=== PATIENT | female | born 1975 | race Caucasian/White ===

== ENCOUNTER 2017-02-02 12:06 | Emergency (ER) | payer MEDICARE, MEDICAID ==
[~2017-02-02] VITALS: Ht 157.5 cm; Wt 118.0 kg
[~2017-02-02 12:06] MED LIST: ALBU8.5H8; ALPR1TAB PO; BUDE10.2; CARV3.1289 PO; DESI50TA PO; ENAL5TAB PO; GABA-534 PO; HYDR-3964 PO; HYDR-569 PO; LAMO100T89 PO; LURA80TA3 PO; METF10002 PO; OMEP-50 PO; PRAZ2CAP2 PO; SIMV80TA5 PO; TRAM50TA2 PO
[2017-02-02] MEDS ORDERED: HYDROcodone/acetaminophen 10/325mg tab PO ONE ×2 (13:15→13:21)
[2017-02-02 13:37] VITALS: BP 128/64
== END 2017-02-02 13:40 | disposition home or self-care (01) ==
LOC: ER 12:07
DX: S01.01XA Laceration without foreign body of scalp, initial encounter (principal); E78.00 Pure hypercholesterolemia, unspecified; K21.9 Gastro-esophageal reflux disease without esophagitis; E11.9 Type 2 diabetes mellitus without complications; Z86.718 Personal history of other venous thrombosis and embolism; Z90.49 Acquired absence of other specified parts of digestive tract; Z79.84 Long term (current) use of oral hypoglycemic drugs; Z88.0 Allergy status to penicillin; Z88.8 Allergy status to other drugs, medicaments and biological substances; W22.8XXA Striking against or struck by other objects, initial encounter; Y93.89 Activity, other specified; Y92.89 Other specified places as the place of occurrence of the external cause; Y99.8 Other external cause status
CPT/HCPCS: 12004; 70450; 99284; A6449

== ENCOUNTER 2017-05-19 10:23 | Emergency (ER) | payer MEDICARE, MEDICAID ==
[~2017-05-19] VITALS: Ht 162.6 cm; Wt 126.0 kg
[2017-05-19] MEDS ORDERED: ONDA4TAB9 SL (14:24)
[2017-05-19 14:25] VITALS: BP 144/79
== END 2017-05-19 14:55 | disposition home or self-care (01) ==
LOC: ER 10:23
DX: R10.84 Generalized abdominal pain (principal); R11.0 Nausea; R19.7 Diarrhea, unspecified; E78.00 Pure hypercholesterolemia, unspecified; I10 Essential (primary) hypertension; K21.9 Gastro-esophageal reflux disease without esophagitis; E11.9 Type 2 diabetes mellitus without complications; Z86.718 Personal history of other venous thrombosis and embolism; Z90.49 Acquired absence of other specified parts of digestive tract; Z98.51 Tubal ligation status; Z98.890 Other specified postprocedural states; Z88.0 Allergy status to penicillin; Z88.8 Allergy status to other drugs, medicaments and biological substances; Z79.899 Other long term (current) drug therapy
CPT/HCPCS: 99283

== ENCOUNTER 2017-12-12 10:01 | Emergency (ER) | payer MEDICARE, MEDICAID ==
[~2017-12-12] VITALS: Ht 162.6 cm; Wt 130.2 kg
[~2017-12-12 10:01] MED LIST changes: +HYDR-4383 PO; -HYDR-569 PO; +METF-438 PO; -METF10002 PO; -SIMV80TA5 PO; +SIMV80TA7 PO
[2017-12-12 10:39] LABS: EOSINOPHILS # (AUTO) 0.2 X10'3 (0-0.9); LYMPHOCYTES # (AUTO) 1.4 X10'3 (1.1-4.8); MONOCYTES # (AUTO) 0.3 X10'3 (0-0.9)
[2017-12-12 10:41] LABS: BASOPHILS % (AUTO) 0.3 % (0-1); EOSINOPHILS % (AUTO) 3.2 % (0-6); HEMATOCRIT 31.2 % (35.0-45.0); HEMOGLOBIN 10.5 g/dl (12.0-16.0); LYMPHOCYTES % (AUTO) 21.8 % (21-51); MEAN CORPUSCULAR HEMOGLOBIN 30.8 PG (27.0-31.0); MEAN CORPUSCULAR HGB CONC 33.6 % (33.0-36.5); MEAN CORPUSCULAR VOLUME 91.8 FL (78-98); MEAN PLATELET VOLUME 6.7 FL (7.4-10.4); MONOCYTES % (AUTO) 4.1 % (2-12); NEUTROPHILS # (AUTO) 4.5 X10'3 (1.8-7.7); NEUTROPHILS % (AUTO) 70.6 % (42-75); PLATELET COUNT 304 X10'3 (140-440); RED CELL DISTRIBUTION WIDTH 15.4 % (11.5-14.5); WHITE BLOOD COUNT 6.4 X10'3 (4.5-11.0)
[2017-12-12 10:59] LABS: ALANINE AMINOTRANSFERASE 36 U/L (12-78); ALBUMIN 3.3 G/DL (3.4-5.0); ALKALINE PHOSPHATASE 101 IU/L (46-116); ANION GAP 10 (8-16); ASPARTATE AMINO TRANSFERASE 21 U/L (10-37); BILIRUBIN,TOTAL 0.2 MG/DL (0.1-1.0); BLOOD UREA NITROGEN 6 MG/DL (7-18); BUN/CREATININE RATIO 7.8 (6.6-38.0); CALCIUM 9.4 MG/DL (8.5-10.1); CHLORIDE 102 MMOL/L (99-107); CREATININE 0.77 MG/DL (0.40-0.90); GLUCOSE 154 MG/DL (70-104); POTASSIUM 3.7 MMOL/L (3.5-5.1); SODIUM 139 MMOL/L (135-145); TOTAL CARBON DIOXIDE 26.6 MMOL/L (24-32); TOTAL PROTEIN 6.6 G/DL (6.4-8.2); eGFR 83 ML/MIN
[2017-12-12 11:43] LABS: PARTIAL THROMBOPLASTIN TIME 40 SECONDS (22-32); PROTHROMBIN TIME 20.4 SECONDS (9.0-12.0)
[2017-12-12 12:11] LABS: D-DIMER 0.21 MG/L FEU (0-0.50)
[2017-12-12 14:14] VITALS: BP 136/82
== END 2017-12-12 14:16 | disposition home or self-care (01) ==
LOC: ER 10:01
DX: R07.89 Other chest pain (principal); E66.9 Obesity, unspecified; E78.00 Pure hypercholesterolemia, unspecified; I10 Essential (primary) hypertension; K21.9 Gastro-esophageal reflux disease without esophagitis; E11.9 Type 2 diabetes mellitus without complications; Z86.718 Personal history of other venous thrombosis and embolism; Z79.01 Long term (current) use of anticoagulants; Z90.49 Acquired absence of other specified parts of digestive tract; Z98.890 Other specified postprocedural states; Z98.51 Tubal ligation status; Z88.0 Allergy status to penicillin; Z88.8 Allergy status to other drugs, medicaments and biological substances; Z79.899 Other long term (current) drug therapy
CPT/HCPCS: 36415; 71045; 80053; 83880; 84484; 85025; 85379; 85610; 85730; 93005; 99285

== ENCOUNTER 2018-05-19 08:39 | Emergency (ER) | payer MEDICARE, MEDICAID ==
[~2018-05-19] VITALS: Ht 152.4 cm; Wt 123.2 kg
[~2018-05-19 08:39] MED LIST changes: -SIMV80TA7 PO; +SIMV80TA89 PO
[2018-05-19 08:49] VITALS: BP 125/61
== END 2018-05-19 09:30 | disposition home or self-care (01) ==
LOC: ER 08:40
DX: S60.031A Contusion of right middle finger without damage to nail, initial encounter (principal); I10 Essential (primary) hypertension; E78.00 Pure hypercholesterolemia, unspecified; K21.9 Gastro-esophageal reflux disease without esophagitis; E11.9 Type 2 diabetes mellitus without complications; Z86.718 Personal history of other venous thrombosis and embolism; Z90.49 Acquired absence of other specified parts of digestive tract; Z98.51 Tubal ligation status; Z88.0 Allergy status to penicillin; Z88.8 Allergy status to other drugs, medicaments and biological substances; W01.0XXA Fall on same level from slipping, tripping and stumbling without subsequent striking against object, initial encounter; Y93.89 Activity, other specified; Y92.89 Other specified places as the place of occurrence of the external cause; Y99.8 Other external cause status
CPT/HCPCS: 73140; 99283

== ENCOUNTER 2018-09-16 08:50 | Observation (INO) | payer MEDICARE, MEDICAID ==
[~2018-09-16] VITALS: Ht 170.2 cm; Wt 115.0 kg
[2018-09-16 09:29] LABS: BASOPHILS # (AUTO) 0.1 X10'3 (0-0.2); BASOPHILS % (AUTO) 0.6 % (0-1); EOSINOPHILS # (AUTO) 0.3 X10'3 (0-0.9); EOSINOPHILS % (AUTO) 3.3 % (0-6); HEMATOCRIT 36.9 % (35.0-45.0); HEMOGLOBIN 12.1 g/dl (12.0-16.0); LYMPHOCYTES # (AUTO) 1.6 X10'3 (1.1-4.8); LYMPHOCYTES % (AUTO) 17.8 % (21-51); MEAN CORPUSCULAR HEMOGLOBIN 30.8 PG (27.0-31.0); MEAN CORPUSCULAR HGB CONC 32.8 g/dL (33.0-36.5); MEAN CORPUSCULAR VOLUME 93.9 FL (78-98); MONOCYTES # (AUTO) 0.5 X10'3 (0-0.9); MONOCYTES % (AUTO) 5.7 % (2-12); NEUTROPHILS # (AUTO) 6.6 X10'3 (1.8-7.7); NEUTROPHILS % (AUTO) 72.6 % (42-75); PLATELET COUNT 314 X10'3 (140-440); RED BLOOD COUNT 3.93 X10'6 (4.20-5.60); RED CELL DISTRIBUTION WIDTH 14.6 % (11.5-14.5); WHITE BLOOD COUNT 9.1 X10'3 (4.5-11.0)
[2018-09-16 09:41] LABS: PARTIAL THROMBOPLASTIN TIME 42 SECONDS (22-32)
[2018-09-16 09:42] LABS: ALANINE AMINOTRANSFERASE 39 U/L (12-78); ALBUMIN 3.2 G/DL (3.4-5.0); ALKALINE PHOSPHATASE 86 IU/L (46-116); ANION GAP 10 (8-16); ASPARTATE AMINO TRANSFERASE 38 U/L (10-37); BILIRUBIN,TOTAL 0.3 MG/DL (0.1-1.0); BLOOD UREA NITROGEN 11 MG/DL (7-18); BUN/CREATININE RATIO 13.3 (6.6-38.0); CALCIUM 8.4 MG/DL (8.5-10.1); CHLORIDE 106 MMOL/L (99-107); CREATININE 0.83 MG/DL (0.40-0.90); GLUCOSE 112 MG/DL (70-104); SODIUM 137 MMOL/L (135-145); TOTAL CARBON DIOXIDE 21.2 MMOL/L (24-32); TOTAL PROTEIN 6.3 G/DL (6.4-8.2); eGFR 76 ML/MIN
[2018-09-16] MEDS ORDERED: normal saline 1000ML IV soln IVB ONE (10:40)
[2018-09-16 11:30] LABS: CLARITY,URINE CLEAR (Clear); COLOR,URINE YELLOW (Yellow); GLUCOSE, URINE NEGATIVE (Neg); KETONES,URINE NEGATIVE (Neg); LEUKOCYTE ESTERASE ,URINE NEGATIVE (Neg); NITRITES, URINE NEGATIVE (Neg); OCCULT BLOOD,URINE NEGATIVE (Neg); PH,URINE 5.5 (4.8-8.0); PROTEIN,URINE TRACE mg/dl (Neg); UROBILINOGEN,URINE 0.2 E.U/dL (0.2-1.0)
[2018-09-16 11:35] LABS: UA COLLECTION TYPE STRAIGHT CATH
[2018-09-16] MEDS ORDERED: meclizine 12.5mg tablet PO ONE (11:35)
[2018-09-16 11:38] LABS: BACTERIA,URINE NONE SEEN /HPF (Neg); RBC,URINE 0-2 /HPF (0-2); WBC,URINE 0-4 /HPF (0-4)
[2018-09-16 11:39] LABS: MUCUS STRANDS FEW /LPF (Neg); SQUAMOUS EPITHELIAL CELL,UR MODERATE /LPF (FEW)
[2018-09-16] MEDS ORDERED: CARV12.5 PO (14:51)
[2018-09-16] MEDS ORDERED: DIPH25CA83 PO (14:58)
[2018-09-16] MEDS ORDERED: ondansetron/PF 4mg/2ml inj IV PRN (15:05)
[2018-09-16] MEDS ORDERED: magnesium hydroxide 30ml (MOM) UD suspension PO PRN (15:05)
[2018-09-16] MEDS ORDERED: mag hydrox/Alum hydrox/simeth 30ml oral suspension PO PRN (15:05)
[2018-09-16] MEDS ORDERED: WARF1TAB83 PO (15:09)
[2018-09-16] MEDS ORDERED: FAMO40TA73 PO (15:09)
[2018-09-16] MEDS ORDERED: ATOR-2 PO (15:09)
[2018-09-16] MEDS ORDERED: WARF10TA50 PO (15:09)
[2018-09-16] MEDS ORDERED: PALI9TAB PO (15:09)
[2018-09-16] MEDS ORDERED: CALC625T PO (15:09)
[2018-09-16] MEDS ORDERED: LISI2.5T2 PO (15:09)
[2018-09-16] MEDS ORDERED: OXCA600T9 PO (15:09)
[2018-09-16] MEDS ORDERED: PALI234D IM (15:11)
--- NOTE | 2018-09-16 15:31 | NUR ---
offered snack,patient refused.
[2018-09-16] MEDS: normal saline 1000ml 1,000 ML IV SCH (15:42)
[2018-09-16 18:00] VITALS: BP 149/81
--- NOTE | 2018-09-16 18:32 | NUR ---
Received report from BRE Aguilera. Patient is awake and alert on room air, in no apparent distress. Asked for a dinner tray, will be delivered to her once kitchen hands it over. Call light and items of frequent use within reach. Will continue to monitor.
[2018-09-16 20:00] VITALS: BP 132/80
[2018-09-16] MEDS ORDERED: non-formulary drug (Oxcarbazepine 1 TAB) PO SCH (20:00)
--- NOTE | 2018-09-16 20:35 | NUR ---
Patient verbalized that family will bring in the Fibercon (Patient's own medication) from home tomorrow.
[2018-09-16] MEDS: oxcarbazepine 150mg tablet PO SCH (20:46)
[2018-09-16] MEDS: carVEDilol 12.5mg tablet PO SCH (20:46)
[2018-09-16] MEDS: heparin, porcine 5000 units/ml vial SQ SCH (20:47)
[2018-09-16] MEDS ORDERED: non-formulary drug (Atorvastatin Calcium 1 TAB) PO SCH (21:00)
[2018-09-16] MEDS ORDERED: atorvastatin 20mg tablet PO SCH (21:00)
[2018-09-16] MEDS: CALCIUM POLYCARBOPHIL PO SCH (21:19)
[2018-09-16] MEDS ORDERED: calcium polycarbophil 625mg tablet PO SCH (22:00)
[2018-09-17] VITALS: BP 120/72
[2018-09-17] MEDS: acetaminophen 325mg tablet PO PRN ×2 (01:48→09:05)
[2018-09-17] MEDS: normal saline 1000ml 1,000 ML IV SCH ×2 (01:51→11:05)
[2018-09-17 05:27] LABS: ALBUMIN 2.6 G/DL (3.4-5.0); ANION GAP 9 (8-16); BLOOD UREA NITROGEN 6 MG/DL (7-18); BUN/CREATININE RATIO 8.6 (6.6-38.0); CALCIUM 8.2 MG/DL (8.5-10.1); CHLORIDE 110 MMOL/L (99-107); GLUCOSE 111 MG/DL (70-104); POTASSIUM 3.7 MMOL/L (3.5-5.1); SODIUM 141 MMOL/L (135-145); TOTAL CARBON DIOXIDE 22.1 MMOL/L (24-32); eGFR > 90 ML/MIN
[2018-09-17 05:29] LABS: BASOPHILS % (AUTO) 0.4 % (0-1); EOSINOPHILS # (AUTO) 0.2 X10'3 (0-0.9); EOSINOPHILS % (AUTO) 4.3 % (0-6); HEMATOCRIT 32.4 % (35.0-45.0); HEMOGLOBIN 10.7 g/dl (12.0-16.0); LYMPHOCYTES # (AUTO) 2.2 X10'3 (1.1-4.8); LYMPHOCYTES % (AUTO) 40.9 % (21-51); MEAN CORPUSCULAR HGB CONC 33.1 g/dL (33.0-36.5); MEAN CORPUSCULAR VOLUME 93.5 FL (78-98); MEAN PLATELET VOLUME 7.2 FL (7.4-10.4); MONOCYTES # (AUTO) 0.4 X10'3 (0-0.9); MONOCYTES % (AUTO) 7.3 % (2-12); NEUTROPHILS # (AUTO) 2.6 X10'3 (1.8-7.7); NEUTROPHILS % (AUTO) 47.1 % (42-75); PLATELET COUNT 250 X10'3 (140-440); RED BLOOD COUNT 3.47 X10'6 (4.20-5.60); RED CELL DISTRIBUTION WIDTH 14.4 % (11.5-14.5); WHITE BLOOD COUNT 5.4 X10'3 (4.5-11.0)
[2018-09-17] MEDS: CALCIUM POLYCARBOPHIL PO SCH ×2 (06:00→10:00)
--- NOTE | 2018-09-17 06:37 | NUR ---
Problems reprioritized. Patient report given, questions answered & plan of care reviewed with BRE Aguilera.
[2018-09-17 07:00] VITALS: BP 130/70
[2018-09-17] MEDS ORDERED: PALIPERIDONE 3 MG TAB.ER.24 PO SCH (08:00)
[2018-09-17] MEDS ORDERED: non-formulary drug (Paliperidone (Invega) 1 TAB) PO SCH (08:00)
[2018-09-17] MEDS ORDERED: famotidine 20mg tablet PO SCH (08:00)
[2018-09-17] MEDS ORDERED: FAMOTIDINE PO SCH (08:00)
[2018-09-17] MEDS ORDERED: warfarin 1mg tablet PO SCH (08:00)
[2018-09-17] MEDS ORDERED: lisinopril 2.5mg tablet PO SCH (08:00)
[2018-09-17] MEDS: carVEDilol 12.5mg tablet PO SCH (09:09)
[2018-09-17] MEDS: heparin, porcine 5000 units/ml vial SQ SCH (09:10)
[2018-09-17] MEDS: oxcarbazepine 150mg tablet PO SCH (09:17)
--- NOTE | 2018-09-17 10:20 | NUR ---
Malnutrition consult: Patient's wt stable with UBW per wt hx in EMR. Pt on CHO controlled diet with documented 100% PO intake meeting nutrient needs. Pt with no documented significant decrease in muscle strength or edema. Pt currently does not meet criteria for malnutrition at this time. Will continue to follow. Addendum: 09/17/18 at [address] Amended: Links added.
[2018-09-17 11:00] VITALS: BP 132/69
[2018-09-17] MEDS ORDERED: warfarin 3mg tablet PO SCH (21:00)
[2018-09-20] MEDS ORDERED: warfarin 3mg tablet PO SCH (21:00)
[2018-09-20] MEDS ORDERED: warfarin 4mg tablet PO SCH (21:00)
== END 2018-09-17 12:35 | disposition home or self-care (01) ==
LOC: ER 08:50 → SUR 3N 15:33
PROVIDERS: ADMIT Family Medicine; ATTEND Family Medicine
DX: G93.40 Encephalopathy, unspecified (principal); R42 Dizziness and giddiness; R53.1 Weakness; E11.9 Type 2 diabetes mellitus without complications; I10 Essential (primary) hypertension; E78.5 Hyperlipidemia, unspecified; E78.00 Pure hypercholesterolemia, unspecified; K21.9 Gastro-esophageal reflux disease without esophagitis; F20.9 Schizophrenia, unspecified; F41.9 Anxiety disorder, unspecified; I25.10 Atherosclerotic heart disease of native coronary artery without angina pectoris; I25.2 Old myocardial infarction; Z90.49 Acquired absence of other specified parts of digestive tract; Z88.0 Allergy status to penicillin
CPT/HCPCS: 36415; 70450; 71045; 80048; 80053; 81001; 82948; 85025; 85610; 85730; 87081; 93005; 96360; 96361; 96372; 97112; 97161; 97530; 99284; G0378; J1644; J7030; J8597

== ENCOUNTER 2018-10-30 13:32 | Outpatient (CLI) | payer MEDICARE, MEDICAID ==
[~2018-10-30 13:32] MED LIST changes: -ALBU8.5H8; -ALPR1TAB PO; +ATOR-2 PO; +CALC625T PO; +CARV12.5 PO; -CARV3.1289 PO; -DESI50TA PO; -ENAL5TAB PO; +FAMO40TA73 PO; -HYDR-4383 PO; +LISI2.5T2 PO; +OXCA600T9 PO; +PALI234D IM; +PALI9TAB PO; -PRAZ2CAP2 PO; +WARF10TA50 PO; +WARF1TAB83 PO
== END 2018-10-30 23:59 | disposition home or self-care (01) ==
LOC: RAD 13:32
PROVIDERS: ATTEND Family Medicine
DX: R55 Syncope and collapse (principal); I10 Essential (primary) hypertension; E11.9 Type 2 diabetes mellitus without complications; J45.909 Unspecified asthma, uncomplicated
CPT/HCPCS: 95816

== ENCOUNTER 2019-10-26 15:12 | Emergency (ER) | payer MEDICARE, MEDICAID ==
[~2019-10-26] VITALS: Ht 165.1 cm; Wt 90.9 kg
[~2019-10-26 15:12] MED LIST changes: +LAMO100T PO; -LAMO100T89 PO
[2019-10-26 15:42] VITALS: BP 122/68
--- NOTE | 2019-10-26 15:50 | NUR ---
Patient to vascular.
--- NOTE | 2019-10-26 16:26 | NUR ---
Patient returned from vascular lab and will be placed into bed 16.
[2019-10-26 16:53] LABS: BASOPHILS % (AUTO) 0.7 % (0-1); EOSINOPHILS # (AUTO) 0.4 X10'3 (0-0.9); EOSINOPHILS % (AUTO) 5.4 % (0-6); HEMATOCRIT 38.6 % (35.0-45.0); HEMOGLOBIN 12.9 g/dl (12.0-16.0); LYMPHOCYTES # (AUTO) 2.2 X10'3 (1.1-4.8); LYMPHOCYTES % (AUTO) 30.2 % (21-51); MEAN CORPUSCULAR HEMOGLOBIN 31.1 PG (27.0-31.0); MEAN CORPUSCULAR HGB CONC 33.4 g/dL (33.0-36.5); MEAN CORPUSCULAR VOLUME 93.1 FL (78-98); MEAN PLATELET VOLUME 6.9 FL (7.4-10.4); MONOCYTES # (AUTO) 0.5 X10'3 (0-0.9); MONOCYTES % (AUTO) 7.4 % (2-12); NEUTROPHILS # (AUTO) 4.1 X10'3 (1.8-7.7); NEUTROPHILS % (AUTO) 56.3 % (42-75); PLATELET COUNT 319 X10'3 (140-440); RED BLOOD COUNT 4.14 X10'6 (4.20-5.60); RED CELL DISTRIBUTION WIDTH 13.6 % (11.5-14.5); WHITE BLOOD COUNT 7.2 X10'3 (4.5-11.0)
[2019-10-26 16:57] LABS: ALANINE AMINOTRANSFERASE 41 U/L (12-78); ALBUMIN 3.5 G/DL (3.4-5.0); ALBUMIN/GLOBULIN RATIO 1.1 (1.1-1.5); ALKALINE PHOSPHATASE 76 IU/L (46-116); ANION GAP 10 (8-16); ASPARTATE AMINO TRANSFERASE 21 U/L (10-37); BILIRUBIN,TOTAL 0.3 MG/DL (0.1-1.0); BLOOD UREA NITROGEN 8 MG/DL (7-18); BUN/CREATININE RATIO 11.4 (6.6-38.0); CALCIUM 8.5 MG/DL (8.5-10.1); CHLORIDE 104 MMOL/L (99-107); GLUCOSE 108 MG/DL (70-104); POTASSIUM 3.6 MMOL/L (3.5-5.1); SODIUM 140 MMOL/L (135-145); TOTAL CARBON DIOXIDE 25.6 MMOL/L (24-32); TOTAL PROTEIN 6.7 G/DL (6.4-8.2); eGFR > 90 ML/MIN
== END 2019-10-26 17:31 | disposition home or self-care (01) ==
LOC: ER 15:12
DX: M79.604 Pain in right leg (principal); R22.41 Localized swelling, mass and lump, right lower limb; E78.00 Pure hypercholesterolemia, unspecified; I10 Essential (primary) hypertension; K21.9 Gastro-esophageal reflux disease without esophagitis; E11.9 Type 2 diabetes mellitus without complications; F41.9 Anxiety disorder, unspecified; F20.9 Schizophrenia, unspecified; Z90.49 Acquired absence of other specified parts of digestive tract; Z98.890 Other specified postprocedural states; Z98.51 Tubal ligation status; Z86.718 Personal history of other venous thrombosis and embolism; Z88.0 Allergy status to penicillin; Z88.8 Allergy status to other drugs, medicaments and biological substances; Z79.84 Long term (current) use of oral hypoglycemic drugs; Z79.01 Long term (current) use of anticoagulants
CPT/HCPCS: 36415; 80053; 85025; 85651; 93970; 99284